=== PATIENT | female | born 1975 | race Caucasian/White ===

== ENCOUNTER 2016-11-24 00:27 | Inpatient (IN) | payer BC ==
[2016-11-24 01:00] VITALS: BMI 29.0
[2016-11-24] MEDS ORDERED: Ondansetron HCl/PF 4 MG/2 ML Vial IVP PRN ×2 (01:23→08:43)
[2016-11-24] MEDS ORDERED: Promethazine HCl 25 MG/ML VIAL IM PRN ×2 (01:23→08:43)
[2016-11-24] MEDS ORDERED: Carboprost 250 MCG/ML AMP IM PRN (01:30)
[2016-11-24] MEDS ORDERED: Ibuprofen 800 MG TAB PO PRN (01:30)
[2016-11-24] MEDS ORDERED: LR / Pitocin 40 units/1000 ml 40 UNITS/1,000 ML BAG IV SCH (01:30)
[2016-11-24] MEDS ORDERED: Acetaminophen/Codeine 30-300mg Tablet PO PRN ×2 (01:30)
[2016-11-24] MEDS ORDERED: Misoprostol 200 MCG TAB RC PRN (01:30)
[2016-11-24] MEDS ORDERED: Lidocaine 1% (PF) 30 ML VIAL SC PRN (01:30)
[2016-11-24] MEDS ORDERED: LR 500 ML/Oxytocin 10 units 500 ML IV SCH ×2 (01:30)
[2016-11-24 02:09] LABS: Hematocrit 39.7 % (36.0-47.0); Mean Platelet Volume 9.7 fL (7.4-10.4); Red Blood Cell (RBC) Count 4.37 mill/uL (4.20-5.40); White Blood Cell (WBC) Count 9.5 thou/uL (4.8-10.8)
[2016-11-24] MEDS ORDERED: Fentanyl 4 mcg/Marc 0.1% Cadd 100 ML ONE (08:04)
[2016-11-24] MEDS: Lactated Ringer's 1,000 ML IV SCH ×3 (08:05→18:58)
[2016-11-24] MEDS ORDERED: Lactated Ringer's 500 ML IV PRN (08:43)
[2016-11-24] MEDS ORDERED: ePHEDrine/0.9% NaCl/PF SYRINGE 50 mg/10 ml SLOW IVP PRN (08:43)
[2016-11-24] MEDS ORDERED: Eucerin (Mineral Oil/Petrolatum,White) 30 gm Jar TOP PRN (08:43)
[2016-11-24] MEDS ORDERED: diphenhydrAMINE HCl 50 MG/ML 1 ML VIAL IVP PRN (08:43)
[2016-11-24] MEDS ORDERED: Acetaminophen 325 MG TAB PO PRN (08:43)
[2016-11-24] MEDS ORDERED: Naloxone HCl 0.4 mg/ml Vial IVP PRN ×2 (08:43)
[2016-11-24] MEDS ORDERED: Fentanyl 4mcg/Marcaine 0.1% Cassette 100 ML EPIDURAL SCH (08:45)
[2016-11-24] MEDS ORDERED: Communication Order-Pharmacy FS SCH (08:45)
[2016-11-24] MEDS ORDERED: Lanolin Ointment 7 GM TUBE TOP PRN (15:33)
[2016-11-24] MEDS ORDERED: Preparation H Ointment 28 GM TUBE PR PRN (15:33)
[2016-11-24] MEDS ORDERED: Milk Of Magnesia 30 ML UDCUP PO PRN (15:33)
[2016-11-24] MEDS ORDERED: Adacel (T-DAP) 0.5 ML VIAL IM ONE (15:33)
[2016-11-24] MEDS ORDERED: Bisacodyl 10 MG SUPP PR PRN (15:33)
[2016-11-24] MEDS ORDERED: Benzocaine/Menthol 20-0.5% 60 ML CAN TOP PRN (15:33)
[2016-11-24] MEDS ORDERED: diphenhydrAMINE HCl 25 MG CAP PO PRN (15:33)
--- NOTE | 2016-11-24 15:35 | PDOC.OPDEL ---
OB Operative/Delivery Note Delivery Dr/Surgeon: Ema Pre-Delivery Diagnosis: active labor Procedure/Post Delivery Dx: spontaneous vaginal delivery Weeks gestation: 38 Anesthesia: epidural - Findings A Sex: female - 5 min: 8 - 10 min: 9 - Additional Findings/Plan Placenta delivered: spontaneous Repaired Obstetrical Laceration: 2nd degree Estimated blood loss: 200ml
[2016-11-24] MEDS ORDERED: LR / Pitocin 40 units/1000 ml 1,000 ML IV SCH (15:45)
[2016-11-24] MEDS: Ferrous Sulfate 325 MG TAB PO SCH (17:18)
[2016-11-24] MEDS ORDERED: traMADol HCl 50 MG TAB PO PRN (19:40)
[2016-11-24] MEDS ORDERED: Bupivacaine 0.25% HCL 30 ML VIAL ONE (19:44)
[2016-11-24] MEDS: Ibuprofen 800 MG TAB PO SCH (21:21)
[2016-11-24] MEDS: Docusate (Surfak) 240 MG CAP PO SCH (21:21)
[2016-11-25] MEDS: Ibuprofen 800 MG TAB PO SCH ×3 (06:16→21:33)
--- NOTE | 2016-11-25 08:02 | PDOC.PP ---
Post Progress Note Post Day #: 1 PO intake tolerated: yes Flatus: yes Ambulation: yes Vital Signs (12 hours) Temp Pulse Resp BP 11/25/16 07:54 98.1 F 78 20 110/57 L 11/25/16 04:15 98.1 F 71 16 117/77 11/25/16 00:30 97.6 F 69 16 109/59 L 11/24/16 20:15 98.8 F 74 16 110/56 L Weight Weight 180 lb - Physical Examination General: NAD Cardiovascular: no m/r/g, RRR Respiratory: clear to ausculation bilateral Abdominal: + bowel sounds, lochia, no distention, appropriately TTP Result Diagrams: 11/24/16 01:00 Additional Labs: Post Labs Hep Bs Antigen Non-Reactive S/CO (NonReactive) 11/24/16 01:36 - Assessment/Plan post day 1 doing well. d/c today pending baby
[2016-11-25] MEDS: Prenatal Vitamin 1 TAB PO SCH (09:27)
[2016-11-25] MEDS: Docusate (Surfak) 240 MG CAP PO SCH ×2 (09:27→21:33)
[2016-11-25] MEDS: Ferrous Sulfate 325 MG TAB PO SCH ×2 (09:28→15:53)
[2016-11-26] MEDS: Ibuprofen 800 MG TAB PO SCH (06:12)
--- NOTE | 2016-11-26 07:44 | DIS ---
DATE OF ADMISSION: 11/24/2016 DATE OF DISCHARGE: 11/26/2016 PRINCIPAL PROCEDURE: Spontaneous vaginal . In brief, this is a patient who was admitted by Dr. Catherine Boo as a 3, para 1 at 38 week s to 39 weeks with spontaneous labor. For full details, please see the admission note by Dr. Boo . She progressed to spontaneous vaginal delivery without complication on 11/24/2016. Apgars were 8 and 9. She had a routine course. She remained afebrile and normotensive throughout her stay. I evaluated the patient on 11/26/2016 at approximately 05:50 and found her to be afebrile with a temperature range of 98.1-98.0. Blood pressures ranged from 117/58-121/71. Pulse w as in the 70s. On laboratory assessment, admission Hepatitis B surface antigen was negative and hem atocrit was 39.7 on arrival. Physical exam at discharge revealed no evidence of uterine tenderness or abnormal vaginal bleeding. ASSESSMENT: This was a patient who delivered on 11/24/2016 who was cleared for discharge on the [facility] ale of 11/26/2016. The child was having bilirubin levels checked for possible continued photothera py. If she is not able to be fully discharged on 11/26/2016, she may stay for [facility] and [facility] after release. DISCHARGE MEDICATIONS: Includes Motrin 600 mg 1 p.o. q.6 hours p.r.n. pain.
[2016-11-26 08:00] VITALS: BP 117/59; TEMP 98
[2016-11-26] MEDS: Ferrous Sulfate 325 MG TAB PO SCH (09:30)
[2016-11-26] MEDS: Prenatal Vitamin 1 TAB PO SCH (09:33)
[2016-11-26] MEDS: Docusate (Surfak) 240 MG CAP PO SCH (09:33)
[2016-11-26] MEDS ORDERED: traMADol HCl 50 MG TAB PO PRN (15:33)
== END 2016-11-26 11:08 | disposition home or self-care (01) | DRG 775 ==
LOC: L&D/OP 00:27 → L&D 01:11 → 3SW 18:12
PROVIDERS: ADMIT Obstetrics & Gynecology; ATTEND Obstetrics & Gynecology
PROC: 10E0XZZ Delivery of Products of Conception, External Approach (ICD-10-PCS; principal; 2016-11-24)
PROC: 0KQM0ZZ Repair Perineum Muscle, Open Approach (ICD-10-PCS; 2016-11-24)
DX: O70.1 Second degree perineal laceration during delivery (principal); Z37.0 Single live birth; Z3A.38 38 weeks gestation of pregnancy
CPT/HCPCS: 85027; 87340; 90715; J7120; S0020